=== PATIENT | male | born 1945 | race Caucasian/White ===

== ENCOUNTER 2021-10-10 10:09 | Outpatient (RCR) | payer MEDICARE | END 2021-10-14 | disposition home or self-care (01) | LOC: CR 10:09 | PROVIDERS: ATTEND Internal Medicine Cardiovascular Disease | DX: Z29.8 Encounter for other specified prophylactic measures (principal); I50.9 Heart failure, unspecified; Z95.5 Presence of coronary angioplasty implant and graft | CPT/HCPCS: 93798 ==

== ENCOUNTER 2021-11-12 14:51 | Outpatient (RCR) | payer MEDICARE | END 2021-11-13 | disposition home or self-care (01) | LOC: CR 14:51 | PROVIDERS: ATTEND Internal Medicine Cardiovascular Disease | DX: Z29.8 Encounter for other specified prophylactic measures (principal); I50.9 Heart failure, unspecified; Z95.5 Presence of coronary angioplasty implant and graft | CPT/HCPCS: 93798 ==

== ENCOUNTER 2021-12-12 10:29 | Outpatient (RCR) | payer MEDICARE | END 2021-12-14 | disposition home or self-care (01) | LOC: CR 10:29 | PROVIDERS: ATTEND Internal Medicine Cardiovascular Disease | DX: Z29.8 Encounter for other specified prophylactic measures (principal); I50.9 Heart failure, unspecified; Z95.5 Presence of coronary angioplasty implant and graft | CPT/HCPCS: 93798 ==

== ENCOUNTER 2021-12-26 10:48 | Outpatient (RCR) | payer MEDICARE | END 2022-01-14 | disposition home or self-care (01) | LOC: CR 10:48 | PROVIDERS: ATTEND Internal Medicine Cardiovascular Disease | DX: Z29.8 Encounter for other specified prophylactic measures (principal); Z95.5 Presence of coronary angioplasty implant and graft | CPT/HCPCS: 93798 ==